=== PATIENT | male | born 1955 | race Two or more races ===

== ENCOUNTER 2017-05-31 09:06 | Day surgery (SDC) | payer OTHER ==
[2017-05-30 09:48] VITALS: BMI 26.9
[~2017-05-31 09:06] MED LIST: LACTATED RINGERS 1,000 ML IV SCH
[2017-05-31 09:38] VITALS: TEMP 97.3
[2017-05-31] MEDS ORDERED: LIDOCAINE 1% 20 ML VIAL (10MG/ML) FOR IV START INTRADERMA ONE (09:39)
[2017-05-31] MEDS ORDERED: MIDAZOLAM 2 MG/2 ML VIAL ONE (10:27)
[2017-05-31] MEDS ORDERED: PROPOFOL 10 MG/ML 20 ML VIAL IV ONE (10:27)
[2017-05-31] MEDS ORDERED: fentaNYL (PF) 50 MCG/ML 2 ML AMP ONE (10:27)
[2017-05-31] MEDS ORDERED: LIDOCAINE 1% INJ 10MG/ML (20 ML MDV) ONE (10:27)
--- NOTE | 2017-05-31 10:58 | P.PCN ---
Date of Procedure: 05/31/17 Procedure(s) Performed: Procedure: Colonoscopy and polypectomy. Preoperative diagnosis: Screening for neoplasia. Postoperative diagnosis: Right colon polyp snared but no large polyps or cancer. Preparation: HalfLytely prep. Sedation: Was provided by anesthesia. Brief clinical history: The patient is a 62-year-old male who is referred for this evaluation for screening for neoplasia age being his risk factor. He has no abdominal complaints, bleeding or anemia. No family history of colon cancer. This would be his first colonoscopy. Procedure: With the patient on his left lateral decubitus position and after informed consent and adequate sedation, the perianal area was inspected and it did not show any fissures or fistulas. There were no masses felt on digital rectal examination. The Olympus CFQ 160L video colonoscope was then inserted in the rectum in the usual fashion and advanced to the cecum. The preparation was less than ideal as there was some thick fecal secretions and fecal debris that could not be suctioned completely because it would block the suction channel. The mucosa where visualized appeared healthy. There was a small polyp in the proximal right colon which I snared and retrieved by suction but there were no large polyps or cancer. Although small or diminutive polyps or superficial pathology could have been missed because of the preparation. I retroflexed the endoscope in the rectum before the endoscope was withdrawn. The patient tolerated the procedure well. Plan: The patient was briefed of the findings on this exam. I anticipate repeating this exam in 2-3 years since his preparation was less than ideal and we found a polyp. He will follow up with you as planned. I will keep you updated.
[2017-05-31 12:01] VITALS: BP 126/78; PULSE 76; RESP 20
== END 2017-05-31 11:56 | disposition home or self-care (01) ==
LOC: ORWHC2ENDO 09:06
DX: Z12.11 Encounter for screening for malignant neoplasm of colon (principal); K63.5 Polyp of colon; E78.5 Hyperlipidemia, unspecified; F41.9 Anxiety disorder, unspecified; Z79.82 Long term (current) use of aspirin; Z79.899 Other long term (current) drug therapy
CPT/HCPCS: 88305; 45385; J2250; J2001; J3010; J2704

== ENCOUNTER 2019-03-14 14:10 | Emergency (ER) | payer MEDICARE, OTHER ==
[2019-03-14 14:28] VITALS: BP 129/76; PULSE 93; RESP 16; TEMP 98.3
[2019-03-14] MEDS ORDERED: KETOROLAC 30 MG/ML 1 ML VIAL IVP STA (15:32)
[2019-03-14 15:42] LABS: Basophils % (A) 0 %; Eosinophils # (A) 0.2 k/uL (0-0.7); Eosinophils % (A) 2 %; HGB 15.8 gm/dL (13.0-17.5); Lymphocytes # (A) 1.6 k/uL (1.0-4.8); Lymphocytes % (A) 21 %; MCH 30.7 pg (25.0-35.0); MCHC 35.2 g/dL (31.0-37.0); MCV 87.2 fL (80.0-100.0); Mean Platelet Volume 6.7; Monocytes # (A) 0.6 k/uL (0-1.0); Monocytes % (A) 7 %; Neutrophils # (A) 5.2 k/uL (1.3-7.7); Neutrophils % (A) 68 %; Platelet Count 161 k/uL (150-450); RBC 5.16 m/uL (4.30-5.90); RDW 13.8 % (11.5-15.5); WBC 7.7 k/uL (3.8-10.6)
[2019-03-14 15:45] LABS: Appearance,Urine Clear (Clear); Bilirubin,Urine Negative (Negative); Blood,Urine Negative (Negative); Color,Urine Yellow; Glucose,Urine (UA) Negative (Negative); Ketones,Urine Negative (Negative); Leukocyte Esterase,Urine Negative (Negative); Nitrite,Urine Negative (Negative); PH, Urine 6.5 (5.0-8.0); Protein,Urine Negative (Negative); Specific Gravity,Urine 1.017 (1.001-1.035)
[2019-03-14 15:48] LABS: ALT 39 U/L (21-72); AST 38 U/L (17-59); African American GFR (CKD) >90 (>60 ml/min/1.73 sqM); Albumin 4.2 g/dL (3.5-5.0); Alkaline Phosphatase 52 U/L (38-126); Amylase 43 U/L (30-110); Anion Gap 7 mmol/L; Blood Urea Nitrogen 12 mg/dL (9-20); Calcium 9.2 mg/dL (8.4-10.2); Carbon Dioxide 29 mmol/L (22-30); Chloride 101 mmol/L (98-107); Glucose 92 mg/dL (74-99); Lipase 24 U/L (23-300); Potassium 4.1 mmol/L (3.5-5.1); Sodium 137 mmol/L (137-145); Total Bilirubin 0.9 mg/dL (0.2-1.3); Total Protein 7.1 g/dL (6.3-8.2)
--- NOTE | 2019-03-14 16:02 | CT ---
EXAMINATION TYPE: CT abdomen pelvis wo con DATE OF EXAM: 03/14/2019 HISTORY: Right sided pain CT DLP: 800.9 mGycm. Automated Exposure Control for Dose Reduction was Utilized. TECHNIQUE: CT scan of the abdomen and pelvis is performed without oral or IV contrast. COMPARISON: NONE FINDINGS: Within the limitations of a non-contrast study, the following observations are made. LUNG BASES: Moderate three-vessel coronary artery calcification is present. Motion artifact degradati on is noted making evaluation suboptimal the lung bases. LIVER/GB: No significant abnormality is appreciated. PANCREAS: No significant abnormality is seen. SPLEEN: No significant abnormality is seen. ADRENALS: No significant abnormality is seen. KIDNEYS: No renal stones or hydronephrosis. Bladder is poorly distended with mild to moderate irregul ar wall thickening. Correlate clinically to exclude acute cystitis. No intraluminal calculus. BOWEL: Evaluation of bowel suboptimal secondary to lack of enteric contrast. Normal-appearing appendi x is seen from cecum. No suspicious swallow large bowel dilatation. GENITAL ORGANS: Prostate gland is upper limits of normal in size with surrounding phleboliths. Semina l vesicles are slightly bulky. LYMPH NODES: No greater than 1cm abdominal or pelvic lymph nodes are appreciated. OSSEOUS STRUCTURES: Transitional-type L6 vertebra is noted. OTHER: No significant additional abnormality is seen. IMPRESSION: No right sided renal stones or hydronephrosis. No CT evidence for acute appendicitis. Pos sible bladder infection or cystitis, correlate clinically. No acute finding otherwise is seen.
--- NOTE | 2019-03-14 16:23 | ED ---
Abdominal Pain HPI - General Chief Complaint: Abdominal Pain Stated Complaint: Side Abd/Back Pain Time Seen by Provider: 03/14/19 14:50 Source: patient Mode of arrival: ambulatory Limitations: no limitations - History of Present Illness Initial Comments: Patient is a 64-year-old male who presents emergency Department with complaints of right-sided abdominal pain with radiation to the right flank on and off 2-3 weeks. Patient states that pain has been increasing over the last few days. Patient states they went to local urgent care 2 days ago and received an abdominal x-ray that was normal. Patient denies any trauma to the area. Patient denies nausea, vomiting, diarrhea, fever, chills, urinary symptoms. Patient admits to history of lumbar DDD. Patient has tried taking Motrin for the pain with minimal relief. No other complaints at this time. - Related Data Home Medications Medication Instructions Recorded Confirmed Aspirin [Adult Low Dose Aspirin EC] 162 mg PO QAM 05/30/17 05/30/17 Buprenorphine HCl/Naloxone HCl 1.5 tab PO DAILY 05/30/17 05/30/17 [Suboxone 8 mg-2 mg Sl Film] Ramipril [Altace] 2.5 mg PO HS 05/30/17 05/30/17 Simvastatin [Zocor] 40 mg PO HS 05/30/17 05/30/17 clonazePAM [KlonoPIN] 2 mg PO QAM 05/30/17 05/30/17 traZODone HCL [Desyrel] 300 mg PO HS 05/30/17 05/30/17 Allergies Allergy/AdvReac Type Severity Reaction Status Date / Time No Known Allergies Allergy Verified 03/14/19 14:28 Review of Systems ROS Statement: Those systems with pertinent positive or pertinent negative responses have been documented in the HPI. ROS Other: All systems not noted in ROS Statement are negative. Past Medical History Additional Past Medical History / Comment(s): varicose veins, degenerative disk disease, hx injured back from fall, History of Any Multi-Drug Resistant Organisms: None Reported Past Surgical History: No Surgical Hx Reported Additional Past Anesthesia/Blood Transfusion Reaction / Comment(s): never had anesthesia Past Psychological History: No Psychological Hx Reported Smoking Status: Former smoker Past Alcohol Use History: Occasional Past Drug Use History: Marijuana - Past Family History Mother Family Medical History: No Reported History General Exam - General Exam Comments Initial Comments: GENERAL: Well-appearing, well-nourished and in no acute distress. HEAD: Atraumatic, normocephalic. EYES: Pupils equal round and reactive to light, extraocular movements intact, sclera anicteric, conjunctiva are normal. ENT: TMs normal, nares patent, oropharynx clear without exudates. Moist mucous membranes. NECK: Normal range of motion, supple without lymphadenopathy or JVD. LUNGS: Breath sounds clear to auscultation bilaterally and equal. No wheezes rales or rhonchi. HEART: Regular rate and rhythm without murmurs, rubs or gallops. ABDOMEN: Right lower quadrant and right flank pain. Soft, normoactive bowel sounds. No guarding, no rebound. No masses appreciated. No left-sided CVA tenderness. : Deferred EXTREMITIES: Normal range of motion, no pitting or edema. No clubbing or cyano sis. NEUROLOGICAL: Cranial nerves II through XII grossly intact. Normal speech, normal gait. PSYCH: Normal mood, normal affect. SKIN: Warm, Dry, normal turgor, no rashes or lesions noted. Limitations: no limitations Course Vital Signs 03/14/19 14:25 Temperature 98.3 F Pulse Rate 93 Respiratory 16 Rate Blood Pressure 129/76 O2 Sat by Pulse 97 Oximetry Medical Decision Making - Medical Decision Making Patient is a 64-year-old male with complaints of right lower quadrant and right flank pain on and off times to 3 weeks. Patient denies any trauma to the area. On exam patient has tenderness right lower quadrant and right flank pain. CBC, CMP, UA are all within normal limits. CT of the abdomen shows no acute abnormalities. Findings were discussed with the patient. Patient then admitted that he went golfing a few weeks ago for the first time in over a year and states that could have triggered something in his back. Patient will be discharged home and will try Motrin and/or Tylenol for pain relief and will follow up with PCP as symptoms continue. Patient is okay with this plan. Return parameters were discussed and patient verbalized understanding. Case discussed with Dr. Jack. - Lab Data Result diagrams: 03/14/19 15:20 03/14/19 15:20 Lab Results 03/14/19 03/14/19 03/14/19 Range/Units 15:20 15:20 15:20 WBC 7.7 (3.8-10.6) k/uL RBC 5.16 (4.30-5.90) m/uL Hgb 15.8 (13.0-17.5) gm/dL Hct 45.0 (39.0-53.0) % MCV 87.2 (80.0-100.0) fL MCH 30.7 (25.0-35.0) pg MCHC 35.2 (31.0-37.0) g/dL RDW 13.8 (11.5-15.5) % Plt Count 161 (150-450) k/uL Neutrophils % 68 % Lymphocytes % 21 % Monocytes % 7 % Eosinophils % 2 % Basophils % 0 % Neutrophils # 5.2 (1.3-7.7) k/uL Lymphocytes # 1.6 (1.0-4.8) k/uL Monocytes # 0.6 (0-1.0) k/uL Eosinophils # 0.2 (0-0.7) k/uL Basophils # 0.0 (0-0.2) k/uL Sodium 137 (137-145) mmol/L Potassium 4.1 (3.5-5.1) mmol/L Chloride 101 (98-107) mmol/L Carbon Dioxide 29 (22-30) mmol/L Anion Gap 7 mmol/L BUN 12 (9-20) mg/dL Creatinine 0.92 (0.66-1.25) mg/dL Est GFR (CKD-EPI)AfAm >90 (>60 ml/min/1.73 sqM) Est GFR (CKD-EPI)NonAf 88 (>60 ml/min/1.73 sqM) Glucose 92 (74-99) mg/dL Calcium 9.2 (8.4-10.2) mg/dL Total Bilirubin 0.9 (0.2-1.3) mg/dL AST 38 (17-59) U/L ALT 39 (21-72) U/L Alkaline Phosphatase 52 (38-126) U/L Total Protein 7.1 (6.3-8.2) g/dL Albumin 4.2 (3.5-5.0) g/dL Amylase 43 (30-110) U/L Lipase 24 (23-300) U/L Urine Color Yellow Urine Appearance Clear (Clear) Urine pH 6.5 (5.0-8.0) Ur Specific [place] 1.017 (1.001-1.035) Urine Protein Negative (Negative) Urine Glucose (UA) Negative (Negative) Urine Ketones Negative (Negative) Urine Blood Negative (Negative) Urine Nitrite Negative (Negative) Urine Bilirubin Negative (Negative) Urine Urobilinogen 2.0 (<2.0) mg/dL Ur Leukocyte Esterase Negative (Negative) Disposition Clinical Impression: Abdominal pain Disposition: HOME SELF-CARE Condition: Stable Instructions (If sedation given, give patient instructions): Abdominal Pain (ED) Additional Instructions: Please return to the Emergency Department if symptoms worsen or any other concerns. Continue with Motrin and/or Tylenol pain as discussed. Follow up with PCP as symptoms continue. Is patient prescribed a controlled substance at d/c from ED?: No Referrals: Nonstaff,Physician [Primary Care Provider] - 1-2 days
== END 2019-03-14 16:32 | disposition home or self-care (01) ==
LOC: EC 14:10
DX: R10.9 Unspecified abdominal pain (principal); Z79.82 Long term (current) use of aspirin; Z79.899 Other long term (current) drug therapy; Z87.891 Personal history of nicotine dependence
CPT/HCPCS: 36415; 80053; 82150; 83690; 85025; 81003; 74176; 99284; 96374; J1885

== ENCOUNTER 2020-01-09 18:22 | Inpatient (IN) | payer MEDICARE ==
[2020-01-09] MEDS ORDERED: ACETAMINOPHEN TAB 500 MG TAB PO STA (19:04)
[2020-01-09] MEDS: SODIUM CHLORIDE 0.9% 500 ML 500 ML IV SCH ×2 (19:14→21:51)
--- NOTE | 2020-01-09 19:30 | XR ---
EXAMINATION TYPE: XR chest 1V portable DATE OF EXAM: 01/09/2020 COMPARISON: NONE HISTORY: Fever and body aches TECHNIQUE: Single frontal view of the chest is obtained. FINDINGS: There is no focal air space opacity, pleural effusion, or pneumothorax seen. The cardiac silhouette size is within normal limits. The osseous structures are intact. There are overlying car diac leads. Suspect some prominent epicardial fat pads are present. Aorta is dense. IMPRESSION: No acute process.
[2020-01-09 19:32] LABS: Basophils % (A) 0 %; Eosinophils % (A) 0 %; HCT 47.5 % (39.0-53.0); Lymphocytes # (A) 0.6 k/uL (1.0-4.8); Lymphocytes % (A) 5 %; MCH 29.8 pg (25.0-35.0); MCHC 33.6 g/dL (31.0-37.0); MCV 88.7 fL (80.0-100.0); Mean Platelet Volume 7.1; Monocytes # (A) 0.6 k/uL (0-1.0); Monocytes % (A) 5 %; Neutrophils # (A) 10.2 k/uL (1.3-7.7); Neutrophils % (A) 88 %; Platelet Count 151 k/uL (150-450); RBC 5.36 m/uL (4.30-5.90); RDW 13.4 % (11.5-15.5); WBC 11.5 k/uL (3.8-10.6)
[2020-01-09 19:40] LABS: Appearance,Urine Clear (Clear); Bilirubin,Urine Negative (Negative); Blood,Urine Negative (Negative); Color,Urine Yellow; Glucose,Urine (UA) Negative (Negative); Ketones,Urine Trace (Negative); Leukocyte Esterase,Urine Negative (Negative); Nitrite,Urine Negative (Negative); Protein,Urine Trace (Negative); Specific Gravity,Urine 1.031 (1.001-1.035)
[2020-01-09 19:41] LABS: ALT 41 U/L (4-49); AST 37 U/L (17-59); African American GFR (CKD) >90 (>60 ml/min/1.73 sqM); Albumin 4.1 g/dL (3.5-5.0); Alkaline Phosphatase 57 U/L (38-126); Anion Gap 9 mmol/L; Blood Urea Nitrogen 14 mg/dL (9-20); Calcium 9.1 mg/dL (8.4-10.2); Carbon Dioxide 25 mmol/L (22-30); Chloride 100 mmol/L (98-107); Glucose 144 mg/dL (74-99); Non-African American GFR(CKD) 86 (>60 ml/min/1.73 sqM); Potassium 3.9 mmol/L (3.5-5.1); Sodium 134 mmol/L (137-145); Total Bilirubin 1.3 mg/dL (0.2-1.3)
[2020-01-09 19:44] LABS: INR 1.1 (<1.2); Partial Thromboplastin Time 23.6 sec (22.0-30.0); Prothrombin Time 11.5 sec (9.0-12.0)
--- NOTE | 2020-01-09 19:44 | ED ---
General Adult HPI - General Source: patient Mode of arrival: ambulatory Limitations: no limitations <Shawna Thurman - Last Filed: 01/11/20 16:06> <Amita Rodriguez - Last Filed: 01/12/20 21:32> - General Chief complaint: Fever Stated complaint: Fever, body aches Time Seen by Provider: 01/09/20 18:50 - History of Present Illness Initial comments: 64-year-old male patient presents to the emergency department today for evaluation of fever and body aches. Patient states that symptoms started yesterday evening and have persisted throughout the day today. States he also had presence of upper abdominal pain last night and this morning. States that his abdominal pain has resolved however he still feels feverish and achy. He denies any nausea or vomiting. Denies any constipation or diarrhea. Denies any cough, congestion, sore throat, or ear pain. States that up to this point he has been well. Denies any rashes or wounds. Patient denies any recent rash, chest pain, back pain, numbness, tingling, dizziness, weakness, hematuria, dysuria, urinary frequency, urinary urgency, headache, visual changes, or any other complaints. (Shawna Thurman) - Related Data Home Medications Medication Instructions Recorded Confirmed Buprenorphine HCl/Naloxone HCl 1 film SL BID 05/30/17 01/09/20 [Suboxone 8 mg-2 mg Sl Film] Ramipril [Altace] 2.5 mg PO DAILY 05/30/17 01/09/20 clonazePAM [KlonoPIN] 1 mg PO Q8H PRN 05/30/17 01/09/20 traZODone HCL [Desyrel] 400 mg PO HS 05/30/17 01/09/20 Cyclobenzaprine [Flexeril] 10 mg PO DAILY PRN 01/09/20 01/09/20 Simvastatin 40 mg PO DAILY 01/09/20 01/09/20 Testosterone Cypionate 300 mg IM [id number] 01/09/20 01/09/20 [Depo-Testosterone] Previous Rx's Medication Instructions Recorded Docusate [Colace] 100 mg PO BID #20 capsule 01/11/20 HYDROcodone/APAP 5-325MG [[place] 1 tab PO Q6HR PRN #10 tab 01/11/20 5-325] Allergies Allergy/AdvReac Type Severity Reaction Status Date / Time No Known Allergies Allergy Verified 01/09/20 22:20 Review of Systems ROS Other: All systems not noted in ROS Statement are negative. <Shawna Thurman - Last Filed: 01/11/20 16:06> ROS Other: All systems not noted in ROS Statement are negative. <Amita Rodriguez Anthony - Last Filed: 01/12/20 21:32> ROS Statement: Those systems with pertinent positive or pertinent negative responses have been documented in the HPI. Past Medical History Additional Past Medical History / Comment(s): degenerative disk disease, hx injured back from fall, History of Any Multi-Drug Resistant Organisms: None Reported Past Surgical History: No Surgical Hx Reported Additional Past Anesthesia/Blood Transfusion Reaction / Comment(s): never had anesthesia Past Psychological History: No Psychological Hx Reported Smoking Status: Former smoker Past Alcohol Use History: Occasional Past Drug Use History: None Reported - Past Family History Mother Family Medical History: No Reported History <Shawna Thurman - Last Filed: 01/11/20 16:06> General Exam Limitations: no limitations General appearance: alert, in no apparent distress, other (This is a well- developed, well-nourished adult male patient in no acute distress. Vital signs upon presentation are temperature 103.0F, pulse 62, respirations 20, blood pressure 133/67, pulse ox 96% on room air.) ENT exam: Present: normal exam, normal oropharynx, mucous membranes moist Respiratory exam: Present: normal lung sounds bilaterally. Absent: respiratory distress, wheezes, rales, rhonchi, stridor Cardiovascular Exam: Present: regular rate, normal rhythm, normal heart sounds. Absent: systolic murmur, diastolic murmur, rubs, gallop, clicks GI/Abdominal exam: Present: soft, normal bowel sounds. Absent: distended, tenderness, guarding, rebound, rigid Neurological exam: Present: alert, oriented X3, CN II-XII intact Psychiatric exam: Present: normal affect, normal mood Skin exam: Present: warm, dry, intact, normal color. Absent: rash <Shawna Thurman - Last Filed: 01/11/20 16:06> Course <Shawna Thurman - Last Filed: 01/11/20 16:06> Vital Signs 01/09/20 01/09/20 01/09/20 18:28 19:08 19:11 Temperature 100.1 F H 103.0 F H Pulse Rate 62 93 Respiratory 20 15 Rate Blood Pressure 133/67 O2 Sat by Pulse 96 95 Oximetry 01/09/20 01/09/20 01/09/20 19:20 19:30 19:40 Temperature Pulse Rate 103 H 93 98 Respiratory 9 L 16 12 Rate Blood Pressure 124/76 124/76 126/76 O2 Sat by Pulse 95 92 L 95 Oximetry 01/09/20 01/09/20 01/09/20 19:50 20:00 20:10 Temperature Pulse Rate 96 93 Respiratory 8 L 8 L Rate Blood Pressure 126/76 126/76 115/69 O2 Sat by Pulse 94 L 95 Oximetry 01/09/20 01/09/20 01/09/20 20:20 20:30 20:40 Temperature Pulse Rate 93 94 Respiratory 13 10 L Rate Blood Pressure 115/69 115/69 122/69 O2 Sat by Pulse 95 92 L Oximetry 01/09/20 01/09/20 01/09/20 20:50 21:00 21:10 Temperature Pulse Rate 98 96 92 Respiratory 16 13 14 Rate Blood Pressure 122/69 122/69 120/79 O2 Sat by Pulse 95 94 L 94 L Oximetry 01/09/20 01/09/20 01/09/20 21:20 21:30 21:40 Temperature Pulse Rate 90 86 92 Respiratory 8 L 12 6 L Rate Blood Pressure 120/79 120/79 121/75 O2 Sat by Pulse 95 94 L 94 L Oximetry 01/09/20 21:50 Temperature Pulse Rate 87 Respiratory 18 Rate Blood Pressure 121/75 O2 Sat by Pulse 95 Oximetry - Reevaluation(s) Reevaluation #1: 01/09/20 19:58 Care has been handed over to my attending Dr. Rodriguez. CT added. Awaiting flu and covid swabs. (Shawna Thurman) EKG Findings - EKG Comments: EKG Findings:: EKG obtained at 191 shows sinus tachycardia with PACs. Ventricular rate is 104, VA interval 188, QRS duration 80, QT 320, QTC 420. No evidence of ST elevation or depression. <Shawna Thurman - Last Filed: 01/11/20 16:06> Medical Decision Making - Lab Data Result diagrams: 01/09/20 18:45 01/09/20 18:45 <Shawna Thurman Gibran - Last Filed: 01/11/20 16:06> - Lab Data Result diagrams: 01/10/20 06:17 01/10/20 06:17 <Amita Rodriguez - Last Filed: 01/12/20 21:32> - Medical Decision Making The patient was signed out to me at shift change. I did review his labs. It does demonstrate a white count of 11.5. Lipase elevated at 1684. Trace ketones in his UA. The patient was sent for a CT of his abdomen and pelvis which demonstrates mild fat stranding in the central upper abdomen and right upper quadrant around the gallbladder. Left lower pulmonary nodule. Gallbladder ultrasound was then performed which demonstrates hydropic size of the gallbladder however, bile duct not visualized. Equivocal read for possible acute cholecystitis. I did discuss results the patient. Blood cultures were obtained the patient was given a dose of Zosyn. I did recommend hospital admission for possible acute cholecystitis for which the patient did agree patient will be admitted to Dr. wilson (Amita Rodriguez) - Lab Data Lab Results 01/09/20 01/09/20 01/09/20 Range/Units 18:45 18:45 18:45 WBC 11.5 H (3.8-10.6) k/uL RBC 5.36 (4.30-5.90) m/uL Hgb 16.0 (13.0-17.5) gm/dL Hct 47.5 (39.0-53.0) % MCV 88.7 (80.0-100.0) fL MCH 29.8 (25.0-35.0) pg MCHC 33.6 (31.0-37.0) g/dL RDW 13.4 (11.5-15.5) % Plt Count 151 (150-450) k/uL Neutrophils % 88 % Lymphocytes % 5 % Monocytes % 5 % Eosinophils % 0 % Basophils % 0 % Neutrophils # 10.2 H (1.3-7.7) k/uL Lymphocytes # 0.6 L (1.0-4.8) k/uL Monocytes # 0.6 (0-1.0) k/uL Eosinophils # 0.0 (0-0.7) k/uL Basophils # 0.0 (0-0.2) k/uL PT 11.5 (9.0-12.0) sec INR 1.1 (<1.2) APTT 23.6 (22.0-30.0) sec Sodium (137-145) mmol/L Potassium (3.5-5.1) mmol/L Chloride (98-107) mmol/L Carbon Dioxide (22-30) mmol/L Anion Gap mmol/L BUN (9-20) mg/dL Creatinine (0.66-1.25) mg/dL Est GFR (CKD-EPI)AfAm (>60 ml/min/1.73 sqM) Est GFR (CKD-EPI)NonAf (>60 ml/min/1.73 sqM) Glucose (74-99) mg/dL Plasma Lactic Acid Ok (0.7-2.0) mmol/L Calcium (8.4-10.2) mg/dL Total Bilirubin (0.2-1.3) mg/dL AST (17-59) U/L ALT (4-49) U/L Alkaline Phosphatase (38-126) U/L Total Protein (6.3-8.2) g/dL Albumin (3.5-5.0) g/dL Lipase (23-300) U/L Urine Color Yellow Urine Appearance Clear (Clear) Urine pH 6.0 (5.0-8.0) Ur Specific [place] 1.031 (1.001-1.035) Urine Protein Trace H (Negative) Urine Glucose (UA) Negative (Negative) Urine Ketones Trace H (Negative) Urine Blood Negative (Negative) Urine Nitrite Negative (Negative) Urine Bilirubin Negative (Negative) Urine Urobilinogen 3.0 (<2.0) mg/dL Ur Leukocyte Esterase Negative (Negative) Coronavirus (PCR) (Not Detectd) Influenza Type A RNA (Not Detectd) Influenza Type B (PCR) (Not Detectd) 01/09/20 01/09/20 01/09/20 Range/Units 18:45 18:45 18:45 WBC (3.8-10.6) k/uL RBC (4.30-5.90) m/uL Hgb (13.0-17.5) gm/dL Hct (39.0-53.0) % MCV (80.0-100.0) fL MCH (25.0-35.0) pg MCHC (31.0-37.0) g/dL RDW (11.5-15.5) % Plt Count (150-450) k/uL Neutrophils % % Lymphocytes % % Monocytes % % Eosinophils % % Basophils % % Neutrophils # (1.3-7.7) k/uL Lymphocytes # (1.0-4.8) k/uL Monocytes # (0-1.0) k/uL Eosinophils # (0-0.7) k/uL Basophils # (0-0.2) k/uL PT (9.0-12.0) sec INR (<1.2) APTT (22.0-30.0) sec Sodium 134 L (137-145) mmol/L Potassium 3.9 (3.5-5.1) mmol/L Chloride 100 (98-107) mmol/L Carbon Dioxide 25 (22-30) mmol/L Anion Gap 9 mmol/L BUN 14 (9-20) mg/dL Creatinine 0.94 (0.66-1.25) mg/dL Est GFR (CKD-EPI)AfAm >90 (>60 ml/min/1.73 sqM) Est GFR (CKD-EPI)NonAf 86 (>60 ml/min/1.73 sqM) Glucose 144 H (74-99) mg/dL Plasma Lactic Acid Ok 1.4 (0.7-2.0) mmol/L Calcium 9.1 (8.4-10.2) mg/dL Total Bilirubin 1.3 (0.2-1.3) mg/dL AST 37 (17-59) U/L ALT 41 (4-49) U/L Alkaline Phosphatase 57 (38-126) U/L Total Protein 7.0 (6.3-8.2) g/dL Albumin 4.1 (3.5-5.0) g/dL Lipase 1684 H (23-300) U/L Urine Color Urine Appearance (Clear) Urine pH (5.0-8.0) Ur Specific [place] (1.001-1.035) Urine Protein (Negative) Urine Glucose (UA) (Negative) Urine Ketones (Negative) Urine Blood (Negative) Urine Nitrite (Negative) Urine Bilirubin (Negative) Urine Urobilinogen (<2.0) mg/dL Ur Leukocyte Esterase (Negative) Coronavirus (PCR) (Not Detectd) Influenza Type A RNA (Not Detectd) Influenza Type B (PCR) (Not Detectd) 01/09/20 01/10/20 01/10/20 Range/Units 20:39 06:17 06:17 WBC 8.1 (3.8-10.6) k/uL RBC 4.72 (4.30-5.90) m/uL Hgb 14.2 (13.0-17.5) gm/dL Hct 42.1 (39.0-53.0) % MCV 89.3 (80.0-100.0) fL MCH 30.1 (25.0-35.0) pg MCHC 33.7 (31.0-37.0) g/dL RDW 13.6 (11.5-15.5) % Plt Count 137 L (150-450) k/uL Neutrophils % 85 % Lymphocytes % 7 % Monocytes % 7 % Eosinophils % 0 % Basophils % 0 % Neutrophils # 6.9 (1.3-7.7) k/uL Lymphocytes # 0.5 L (1.0-4.8) k/uL Monocytes # 0.5 (0-1.0) k/uL Eosinophils # 0.0 (0-0.7) k/uL Basophils # 0.0 (0-0.2) k/uL PT (9.0-12.0) sec INR (<1.2) APTT (22.0-30.0) sec Sodium 135 L (137-145) mmol/L Potassium 3.8 (3.5-5.1) mmol/L Chloride 100 (98-107) mmol/L Carbon Dioxide 28 (22-30) mmol/L Anion Gap 7 mmol/L BUN 14 (9-20) mg/dL Creatinine 0.85 (0.66-1.25) mg/dL Est GFR (CKD-EPI)AfAm >90 (>60 ml/min/1.73 sqM) Est GFR (CKD-EPI)NonAf >90 (>60 ml/min/1.73 sqM) Glucose 100 H (74-99) mg/dL Plasma Lactic Acid Ok (0.7-2.0) mmol/L Calcium 8.1 L (8.4-10.2) mg/dL Total Bilirubin (0.2-1.3) mg/dL AST (17-59) U/L ALT (4-49) U/L Alkaline Phosphatase (38-126) U/L Total Protein (6.3-8.2) g/dL Albumin (3.5-5.0) g/dL Lipase (23-300) U/L Urine Color Urine Appearance (Clear) Urine pH (5.0-8.0) Ur Specific [place] (1.001-1.035) Urine Protein (Negative) Urine Glucose (UA) (Negative) Urine Ketones (Negative) Urine Blood (Negative) Urine Nitrite (Negative) Urine Bilirubin (Negative) Urine Urobilinogen (<2.0) mg/dL Ur Leukocyte Esterase (Negative) Coronavirus (PCR) Not Detected (Not Detectd) Influenza Type A RNA Not Detected (Not Detectd) Influenza Type B (PCR) Not Detected (Not Detectd) Disposition <Shawna Thurman - Last Filed: 01/11/20 16:06> Is patient prescribed a controlled substance at d/c from ED?: No Decision to Admit Reason: Admit from EC Decision Date: 01/09/20 Decision Time: 22:47 <Amita Rodriguez - Last Filed: 01/12/20 21:32> Clinical Impression: Fever, Acute cholecystitis, Abdominal pain, Elevated lipase Disposition: ADMITTED IP TO THIS [facility] Condition: Stable
--- NOTE | 2020-01-09 20:35 | CT ---
EXAMINATION TYPE: CT abdomen pelvis w con DATE OF EXAM: 01/09/2020 COMPARISON: 03/14/2019 HISTORY: epigastric pain, fever CT DLP: 1481.1 mGycm Automated exposure control for dose reduction was used. TECHNIQUE: Helical acquisition of images was performed from the lung bases through the pelvis. CONTRAST: Performed without Oral Contrast and with IV Contrast, patient injected with 100 mL of Isovue 300. FINDINGS: LUNG BASES: 2 mm solid pulmonary nodule seen in the left lower lobe on series 4 image 201 and series 204 image 4. Multifocal linear pleural parenchymal scarring and bibasilar subsegmental dependent atel ectasis in the lungs. LIVER/GB: There is patchy stranding in the central abdomen and right upper quadrant adjacent to the g allbladder and image 35 and in the groove between the pancreas and descending duodenum. Descending du odenal diverticulum is also seen. PANCREAS: No significant abnormality is seen. SPLEEN: The spleen is enlarged measuring 14.4 cm in craniocaudal dimension. ADRENALS: No significant abnormality is seen. KIDNEYS: Kidneys enhance and excrete symmetrically without hydronephrosis. Urinary bladder displays c ircumferential urinary bladder wall thickening, which could be on the basis of infectious etiology or incomplete distention. Resting clinic heterogenous. FREE AIR: No free air is visualized. ADENOPATHY: Limited evaluation without intravenous contrast. No greater than 1 cm short axis lymph n odes are seen in the abdomen or pelvis. OSSEOUS STRUCTURES: There is mild levoscoliosis of the lumbar spine that may be positional. Mild mul tilevel degenerative change of the spine. BOWEL: Suboptimal exam without oral contrast. No evidence of obstruction. Mild degree colonic fecal stasis in the transverse colon and right hemicolon. Appendix is within normal limits. OTHER: Moderate atheromatous changes of the abdominal aorta and its branches. IMPRESSION: 1. MILD FAT STRANDING IN THE CENTRAL UPPER ABDOMEN AND RIGHT UPPER QUADRANT AROUND THE GALLBLADDER. C ORRELATE WITH SERUM LABORATORY VALUES TO EVALUATE FURTHER FOR ACUTE CHOLECYSTITIS OR GROOVE PANCREATI TIS/DUODENITIS. 2. URINARY BLADDER WALL THICKENING DIFFUSELY. THIS COULD RELATE TO INCOMPLETE DISTENTION OR A URINARY TRACT INFECTION. CORRELATE WITH URINALYSIS. 3. SUBCENTIMETER LEFT LOWER LOBE PULMONARY NODULE. NONEMERGENT FOLLOW-UP CT THORAX IS RECOMMENDED FOR FULL EVALUATION OF THE CHEST.
[2020-01-09 21:09] LABS: SARS-CoV-2 RNA Rapid Abbott Not Detected (Not Detectd)
[2020-01-09] MEDS ORDERED: PIPERACILLIN-TAZOBACTAM 3.375 GM in SODIUM CHLORIDE 0.9% 100 ML IVPB STA (21:23)
--- NOTE | 2020-01-09 22:37 | US ---
EXAMINATION TYPE: US gallbladder DATE OF EXAM: 01/09/2020 COMPARISON: CT. CLINICAL HISTORY: cholecystitis. Abdominal pain x 1 day. EXAM MEASUREMENTS: Liver Length: 17.4 cm Gallbladder Wall: 0.27 cm CBD: Not visualized. Right Kidney: 13.2 x 5.6 x 5.6 cm Pancreas: Limited due to overlying bowel gas. Liver: Measures upper limits of normal. Heterogenous echogenicity throughout. Hypoechoic area seen a djacent to the gallbladder measurin.2 x 2.5 x 1.6 cm. Gallbladder: Appears distended measuring 11.0 cm in length. Possible minimal internal echoes near ne ck versus artifact. Evidence for sonographic Deng's sign: No CBD: Not visualized due to gas. Right Kidney: Measures enlarged. IMPRESSION: 1. Hydropic size of the gallbladder however unfortunately the common bile duct was not visualized due to overlying bowel gas. Sonographic Deng sign was noted to be negative. HIDA scan could be perform ed if there is further concern for acute cholecystitis given the equivocal sonographic findings. 2. Sonographic most commonly seen in hepatic steatosis with hypoechoic area adjacent to the gallbladd er that may represent focal fatty sparing. Nonemergent follow-up [address] MR liver could further evaluate this finding.
[2020-01-09] MEDS ORDERED: ACETAMINOPHEN TAB 325 MG TAB PO PRN (22:47)
[2020-01-09] MEDS ORDERED: NALOXONE 0.4 MG/ML 1 ML VIAL IV PRN (22:47)
[2020-01-09] MEDS ORDERED: IBUPROFEN 400 MG TAB PO PRN (22:47)
[2020-01-10 07:06] LABS: Basophils % (A) 0 %; Eosinophils % (A) 0 %; HCT 42.1 % (39.0-53.0); HGB 14.2 gm/dL (13.0-17.5); Lymphocytes # (A) 0.5 k/uL (1.0-4.8); Lymphocytes % (A) 7 %; MCH 30.1 pg (25.0-35.0); MCHC 33.7 g/dL (31.0-37.0); MCV 89.3 fL (80.0-100.0); Mean Platelet Volume 7.3; Monocytes # (A) 0.5 k/uL (0-1.0); Monocytes % (A) 7 %; Neutrophils # (A) 6.9 k/uL (1.3-7.7); Neutrophils % (A) 85 %; Platelet Count 137 k/uL (150-450); RBC 4.72 m/uL (4.30-5.90); RDW 13.6 % (11.5-15.5); WBC 8.1 k/uL (3.8-10.6)
[2020-01-10 07:34] LABS: African American GFR (CKD) >90 (>60 ml/min/1.73 sqM); Anion Gap 7 mmol/L; Blood Urea Nitrogen 14 mg/dL (9-20); Calcium 8.1 mg/dL (8.4-10.2); Carbon Dioxide 28 mmol/L (22-30); Chloride 100 mmol/L (98-107); Glucose 100 mg/dL (74-99); Non-African American GFR(CKD) >90 (>60 ml/min/1.73 sqM); Potassium 3.8 mmol/L (3.5-5.1); Sodium 135 mmol/L (137-145)
[2020-01-10] MEDS: SODIUM CHLORIDE 0.9% 500 ML 500 ML IV SCH (10:02)
[2020-01-10] MEDS: SODIUM CHLORIDE 0.9% 1,000 ML IV SCH ×3 (10:02→19:50)
--- NOTE | 2020-01-10 11:28 | P.GSHP ---
History of Present Illness H&P Date: 01/10/20 Chief Complaint: Right upper quadrant pain This a 64-year-old male who had complaints of right quadrant pain. Patient was admitted through the emergency room. Patient's found have evidence of cholecystitis. Patient's ultrasound shows hydropic gallbladder with gallstones in the neck of the gallbladder. Past Medical History Additional Past Medical History / Comment(s): degenerative disk disease, hx injured back from fall, History of Any Multi-Drug Resistant Organisms: None Reported Past Surgical History: No Surgical Hx Reported Past Anesthesia/Blood Transfusion Reactions: No Reported Reaction Additional Past Anesthesia/Blood Transfusion Reaction / Comment(s): never had anesthesia Past Psychological History: No Psychological Hx Reported Smoking Status: Former smoker Past Alcohol Use History: Occasional Additional Past Alcohol Use History / Comment(s): quit smoking 1989, smoked since age 17, 1/2 PPD Past Drug Use History: None Reported - Past Family History Mother Family Medical History: No Reported History, Dementia Medications and Allergies Home Medications Medication Instructions Recorded Confirmed Type Buprenorphine HCl/Naloxone HCl 1 film SL BID 05/30/17 01/09/20 History [Suboxone 8 mg-2 mg Sl Film] Ramipril [Altace] 2.5 mg PO DAILY 05/30/17 01/09/20 History clonazePAM [KlonoPIN] 1 mg PO Q8H PRN 05/30/17 01/09/20 History traZODone HCL [Desyrel] 400 mg PO HS 05/30/17 01/09/20 History Cyclobenzaprine [Flexeril] 10 mg PO DAILY PRN 01/09/20 01/09/20 History Simvastatin 40 mg PO DAILY 01/09/20 01/09/20 History Testosterone Cypionate 300 mg IM [id number] 01/09/20 01/09/20 History [Depo-Testosterone] Allergies Allergy/AdvReac Type Severity Reaction Status Date / Time No Known Allergies Allergy Verified 01/09/20 22:20 Surgical - Exam Vital Signs Temp Pulse Resp BP Pulse Ox 100.1 F H 62 20 133/67 96 01/09/20 18:28 01/09/20 18:28 01/09/20 18:28 01/09/20 18:28 01/09/20 18:28 - General well developed, well nourished - Eyes PERRL - ENT normal pinna - Neck no masses - Respiratory normal expansion - Cardiovascular Rhythm: regular - Abdomen Mild right upper quadrant pain Abdomen: soft Results - Labs 01/10/20 06:17 01/10/20 06:17 Abnormal Lab Results - Last 24 Hours (Table) 01/09/20 01/09/20 01/09/20 Range/Units 18:45 18:45 18:45 WBC 11.5 H (3.8-10.6) k/uL Plt Count (150-450) k/uL Neutrophils # 10.2 H (1.3-7.7) k/uL Lymphocytes # 0.6 L (1.0-4.8) k/uL Sodium 134 L (137-145) mmol/L Glucose 144 H (74-99) mg/dL Calcium (8.4-10.2) mg/dL Lipase (23-300) U/L Urine Protein Trace H (Negative) Urine Ketones Trace H (Negative) 01/09/20 01/10/20 01/10/20 Range/Units 18:45 06:17 06:17 WBC (3.8-10.6) k/uL Plt Count 137 L (150-450) k/uL Neutrophils # (1.3-7.7) k/uL Lymphocytes # 0.5 L (1.0-4.8) k/uL Sodium 135 L (137-145) mmol/L Glucose 100 H (74-99) mg/dL Calcium 8.1 L (8.4-10.2) mg/dL Lipase 1684 H (23-300) U/L Urine Protein (Negative) Urine Ketones (Negative) Microbiology - Last 24 Hours (Table) 01/09/20 18:45 Blood Culture Gram Stain - Preliminary Blood 01/09/20 18:45 Blood Culture - Final Blood Diabetes panel 01/09/20 01/10/20 Range/Units 18:45 06:17 Sodium 134 L 135 L (137-145) mmol/L Potassium 3.9 3.8 (3.5-5.1) mmol/L Chloride 100 100 (98-107) mmol/L Carbon Dioxide 25 28 (22-30) mmol/L BUN 14 14 (9-20) mg/dL Creatinine 0.94 0.85 (0.66-1.25) mg/dL Glucose 144 H 100 H (74-99) mg/dL Calcium 9.1 8.1 L (8.4-10.2) mg/dL AST 37 (17-59) U/L ALT 41 (4-49) U/L Alkaline Phosphatase 57 (38-126) U/L Total Protein 7.0 (6.3-8.2) g/dL Albumin 4.1 (3.5-5.0) g/dL Calcium panel 01/09/20 01/10/20 Range/Units 18:45 06:17 Calcium 9.1 8.1 L (8.4-10.2) mg/dL Albumin 4.1 (3.5-5.0) g/dL Pituitary panel 01/09/20 01/10/20 Range/Units 18:45 06:17 Sodium 134 L 135 L (137-145) mmol/L Potassium 3.9 3.8 (3.5-5.1) mmol/L Chloride 100 100 (98-107) mmol/L Carbon Dioxide 25 28 (22-30) mmol/L BUN 14 14 (9-20) mg/dL Creatinine 0.94 0.85 (0.66-1.25) mg/dL Glucose 144 H 100 H (74-99) mg/dL Calcium 9.1 8.1 L (8.4-10.2) mg/dL Adrenal panel 01/09/20 01/10/20 Range/Units 18:45 06:17 Sodium 134 L 135 L (137-145) mmol/L Potassium 3.9 3.8 (3.5-5.1) mmol/L Chloride 100 100 (98-107) mmol/L Carbon Dioxide 25 28 (22-30) mmol/L BUN 14 14 (9-20) mg/dL Creatinine 0.94 0.85 (0.66-1.25) mg/dL Glucose 144 H 100 H (74-99) mg/dL Calcium 9.1 8.1 L (8.4-10.2) mg/dL Total Bilirubin 1.3 (0.2-1.3) mg/dL AST 37 (17-59) U/L ALT 41 (4-49) U/L Alkaline Phosphatase 57 (38-126) U/L Total Protein 7.0 (6.3-8.2) g/dL Albumin 4.1 (3.5-5.0) g/dL Assessment and Plan Assessment: Cholecystitis. Patient undergo laparoscopic cholecystectomy today.
[2020-01-10] MEDS: clonazePAM 1 MG TAB PO PRN ×2 (11:36→23:08)
--- NOTE | 2020-01-10 14:13 | P.CONS ---
History of Present Illness - Reason for Consult Recommendations regarding antidepressant medications, shortness of breath - History of Present Illness 64-year-old male came in with the complaints of her diffuse abdominal pain sharp in nature severe which is has a reveal improved now along with the body aches, fevers and nausea all of which started yesterday. Patient also has some shortness of breath because of which he believed he may have Covid 19, which was ruled out with the PCR testing chest x-ray did not show any pneumonia or any other significant abnormality patient is with obese. Patient denied any dysuria patient the abdominal CAT scan showed some thickening of the urinary bladder but patient he is within normal limits and patient doesn't have any symptoms of UTI patient was started on Zosyn. Patient's computed tomography scan of the abdomen showed suspicious cholecystitis. Ultrasound of the abdomen was done which showed hydropic says gallbladder although patient's Deng's sign is negative and clinical exam. Abdomen is firm, no rebound or rigidity Review of Systems REVIEW OF SYSTEMS: CONSTITUTIONAL: No fever, no malaise, no fatigue. HEENT: No recent visual problems or hearing problems. Denied any sore throat. CARDIOVASCULAR: No chest pain, orthopnea, PND, no palpitations, no syncope. PULMONARY: No shortness of breath, no cough, no hemoptysis. GASTROINTESTINAL: As mentioned in HPI NEUROLOGICAL: No headaches, no weakness, no numbness. HEMATOLOGICAL: Denies any bleeding or petechiae. GENITOURINARY: Denies any burning micturition, frequency, or urgency. MUSCULOSKELETAL/RHEUMATOLOGICAL: Denies any joint pain, swelling, or any muscle pain. ENDOCRINE: Denies any polyuria or polydipsia. The rest of the 14-point review of systems is negative. Past Medical History Additional Past Medical History / Comment(s): degenerative disk disease, hx injured back from fall, History of Any Multi-Drug Resistant Organisms: None Reported Past Surgical History: No Surgical Hx Reported Past Anesthesia/Blood Transfusion Reactions: No Reported Reaction Additional Past Anesthesia/Blood Transfusion Reaction / Comm: never had anesthesia Past Psychological History: No Psychological Hx Reported Smoking Status: Former smoker Past Alcohol Use History: Occasional Additional Past Alcohol Use History / Comment(s): quit smoking 1989, smoked since age 17, 1/2 PPD Past Drug Use History: None Reported - Past Family History Mother Family Medical History: No Reported History, Dementia Medications and Allergies Home Medications Medication Instructions Recorded Confirmed Type Buprenorphine HCl/Naloxone HCl 1 film SL BID 05/30/17 01/09/20 History [Suboxone 8 mg-2 mg Sl Film] Ramipril [Altace] 2.5 mg PO DAILY 05/30/17 01/09/20 History clonazePAM [KlonoPIN] 1 mg PO Q8H PRN 05/30/17 01/09/20 History traZODone HCL [Desyrel] 400 mg PO HS 05/30/17 01/09/20 History Cyclobenzaprine [Flexeril] 10 mg PO DAILY PRN 01/09/20 01/09/20 History Simvastatin 40 mg PO DAILY 01/09/20 01/09/20 History Testosterone Cypionate 300 mg IM [id number] 01/09/20 01/09/20 History [Depo-Testosterone] Allergies Allergy/AdvReac Type Severity Reaction Status Date / Time No Known Allergies Allergy Verified 01/09/20 22:20 Physical Exam Vitals: Vital Signs Temp Pulse Pulse Resp BP BP Pulse Ox 01/10/20 07:00 98.6 F 102 H 18 109/66 92 L 01/10/20 04:43 98.6 F 101 H 20 147/77 96 01/10/20 04:41 98.6 F 101 H 18 147/77 96 01/09/20 21:50 87 18 121/75 95 01/09/20 21:40 92 6 L 121/75 94 L 01/09/20 21:30 86 12 120/79 94 L 01/09/20 21:20 90 8 L 120/79 95 01/09/20 21:10 92 14 120/79 94 L 01/09/20 21:00 96 13 122/69 94 L 01/09/20 20:50 98 16 122/69 95 01/09/20 20:40 94 10 L 122/69 92 L 01/09/20 20:30 93 13 115/69 95 01/09/20 20:20 115/69 01/09/20 20:10 115/69 01/09/20 20:00 93 8 L 126/76 95 01/09/20 19:50 96 8 L 126/76 94 L 01/09/20 19:40 98 12 126/76 95 01/09/20 19:30 93 16 124/76 92 L 01/09/20 19:20 103 H 9 L 124/76 95 01/09/20 19:11 93 15 95 01/09/20 19:08 103.0 F H 01/09/20 18:28 100.1 F H 62 20 133/67 96 Intake and Output 01/09/20 01/10/20 01/10/20 22:59 06:59 14:59 Other: Weight 95.254 kg 95.254 kg PHYSICAL EXAMINATION: GENERAL: The patient is alert and oriented x3, not in any acute distress. Well developed, well nourished. HEENT: Pupils are round and equally reacting to light. EOMI. No scleral icterus. No conjunctival pallor. Normocephalic, atraumatic. No pharyngeal erythema. No thyromegaly. CARDIOVASCULAR: S1 and S2 present. No murmurs, rubs, or gallops. PULMONARY: Chest is clear to auscultation, no wheezing or crackles. ABDOMEN: Firm abdomen without any significant localized tenderness, no rebound or rigidity Deng's sign negative MUSCULOSKELETAL: No joint swelling or deformity. EXTREMITIES: No cyanosis, clubbing, or pedal edema. NEUROLOGICAL: Gross neurological examination did not reveal any focal deficits. SKIN: No rashes. Results CBC & Chem 7: 01/10/20 06:17 01/10/20 06:17 Labs: Abnormal Lab Results - Last 24 Hours (Table) 01/09/20 01/09/20 01/09/20 Range/Units 18:45 18:45 18:45 WBC 11.5 H (3.8-10.6) k/uL Plt Count (150-450) k/uL Neutrophils # 10.2 H (1.3-7.7) k/uL Lymphocytes # 0.6 L (1.0-4.8) k/uL Sodium 134 L (137-145) mmol/L Glucose 144 H (74-99) mg/dL Calcium (8.4-10.2) mg/dL Lipase (23-300) U/L Urine Protein Trace H (Negative) Urine Ketones Trace H (Negative) 01/09/20 01/10/20 01/10/20 Range/Units 18:45 06:17 06:17 WBC (3.8-10.6) k/uL Plt Count 137 L (150-450) k/uL Neutrophils # (1.3-7.7) k/uL Lymphocytes # 0.5 L (1.0-4.8) k/uL Sodium 135 L (137-145) mmol/L Glucose 100 H (74-99) mg/dL Calcium 8.1 L (8.4-10.2) mg/dL Lipase 1684 H (23-300) U/L Urine Protein (Negative) Urine Ketones (Negative) Microbiology - Last 24 Hours (Table) 01/09/20 18:45 Blood Culture Gram Stain - Preliminary Blood Blood Culture - Preliminary Proteus Species 01/09/20 18:45 Blood Culture - Final Blood Assessment and Plan Plan: -Sepsis probably secondary to acute cholecystitis patient will undergo cholecystectomy continue his Zosyn -Elevated lipase can be related to mild pancreatitis from a passed gallstone or can be nonspecific without any pancreatitis. -Hypovolemic hyponatremia can you with IV fluids --Chronic low back pain for which patient was walks on which can be continued -Hypertension patient's blood pressure is low because of sepsis hold off on the LEANNE inhibitor -Hyperlipidemia -Thickening of urinary bladder but no evidence of urinary tract infection
[2020-01-10] MEDS ORDERED: IV FLUID CONTINUATION 1,000 ML IV ONE (15:01)
[2020-01-10] MEDS ORDERED: ONDANSETRON 4 MG/2 ML VIAL IVP ONE (15:01)
[2020-01-10] MEDS ORDERED: HEPARIN SODIUM,PORCINE 5,000 UNIT/ML 1 ML VIAL SQ ONE (15:55)
[2020-01-10] MEDS ORDERED: PROPOFOL 10 MG/ML 20 ML VIAL IV ONE (15:58)
[2020-01-10] MEDS ORDERED: HYDROmorphone (PF) 1 MG/ML ONE (15:58)
[2020-01-10] MEDS ORDERED: KETOROLAC 30 MG/ML 1 ML VIAL ONE (15:58)
[2020-01-10] MEDS ORDERED: fentaNYL (PF) 50 MCG/ML 2 ML AMP ONE (15:58)
[2020-01-10] MEDS ORDERED: GLYCOPYRROLATE 0.2 MG/ML 2 ML VIAL ONE (15:58)
[2020-01-10] MEDS ORDERED: MIDAZOLAM 2 MG/2 ML VIAL ONE (15:58)
[2020-01-10] MEDS ORDERED: ROCURONIUM BROMIDE 10 MG/ML 5 ML VIAL IV ONE (15:58)
[2020-01-10] MEDS ORDERED: NEOSTIGMINE 1 MG/ML 10 ML VIAL ONE (15:58)
[2020-01-10] MEDS ORDERED: ONDANSETRON 4 MG/2 ML VIAL ONE (15:58)
[2020-01-10] MEDS ORDERED: LIDOCAINE 1% INJ 10MG/ML (20 ML MDV) ONE (15:58)
[2020-01-10] MEDS ORDERED: SUCCINYLCHOLINE CHLORIDE 100 MG/5 ML SYR IV ONE (15:58)
[2020-01-10] MEDS ORDERED: BUPIVACAIN-EPI 0.25%-1:200,000 30 ML VIAL SQ ONE (16:26)
[2020-01-10] MEDS: LACTATED RINGERS 1,000 ML IV ONE ×4 (16:26→18:13)
[2020-01-10] MEDS ORDERED: HYDROmorphone 1 MG/ML 1 ML SYRINGE IM PRN (16:58)
--- NOTE | 2020-01-10 16:58 | P.OP ---
Date of Procedure: 01/10/20 Preoperative Diagnosis: Cholecystitis Postoperative Diagnosis: Cholecystitis Procedure(s) Performed: Laparoscopic cholecystectomy Anesthesia: EDMOND Surgeon: Lakhwinder Cherry Estimated Blood Loss (ml): 10 Pathology: other (Gallbladder) Condition: stable Disposition: PACU Description of Procedure: The patient was placed on the operating table. The patient received a general endotracheal tube anesthesia. The patients abdomen was prepped and draped in the usual sterile fashion. Through an infraumbilical stab incision, the fascia of the anterior abdominal wall was grasped with a pair of Kochers and then the Veress needle was placed in the peritoneal cavity. Position of the Veress needle was confirmed with positive drop test. The abdomen was then insufflated. After adequate insufflation, the 10 mm trocar was placed in the peritoneal cavity. Following this the laparoscope was placed in the peritoneal cavity. The patient was placed in the head-up, right side up position and then a 5 mm trocar was placed in the right lateral and right subcostal position under direct visualization. A 8 mm trocar was placed in the epigastric position. The gallbladder was covered in omentum. The omentum was bluntly dissected free. The gallbladder was inflamed. The gallbladder was grasped in the fundus and infundibulum. Traction on the gallbladder was placed in the lateral and the cephalad positions. The gallbladder was very inflamed. The gallbladder was dissected near the fundus. Due to the significant inflammation of the jose m hepatis decided to perform a subtotal cholecystectomy. At the neck of the gallbladder a window was achieved with blunt dissection and then a 2-0 Ethibond sutures placed around the neck of the gallbladder. This was secured with a timeout device the gallbladder was then transected with the Harmonic scissors and then the gallbladder stump was ligated with the Endoloop. The cystic artery was then divided with the Harmonic scissors. The gallbladder was then removed liver bed using electrocautery and Harmonic scissors. The gallbladder was then extracted through the epigastric port site. Operative field was checked for any bleeding spots and Harmonic scissors was used to coagulate the liver bed. The abdomen was irrigated. The trocars were removed. The skin was closed using interrupted 3-0 Vicryl suture. Dermabond dressing were applied. The patient tolerated the procedure well.
[2020-01-10] MEDS ORDERED: SODIUM CHLORIDE 0.9% 1,000 ML IV ONE (16:59)
[2020-01-10] MEDS ORDERED: HYDROmorphone 0.5 MG/0.5 ML SYRINGE IVP ONE (18:20)
[2020-01-10] MEDS: PIPERACILLIN-TAZOBACTAM 3.375 GM in SODIUM CHLORIDE 0.9% 100 ML IVPB SCH ×2 (19:19→23:10)
[2020-01-10] MEDS: NALOXONE SUBLINGUAL SCH (19:50)
[2020-01-10] MEDS: BUPRENORPHINE SUBLINGUAL SCH (19:50)
[2020-01-10] MEDS: HYDROmorphone 1 MG/ML 1 ML SYRINGE IVP PRN (20:50)
[2020-01-10] MEDS ORDERED: NON FORMULARY DRUG (Buprenorphine Hcl/Naloxone Hcl [Suboxone 8 Mg-2 Mg Sl Film] 1 FILM) SUBLINGUAL SCH (21:00)
[2020-01-10] MEDS ORDERED: traZODone HCL 100 MG TAB PO SCH (21:00)
[2020-01-11] MEDS: SODIUM CHLORIDE 0.9% 1,000 ML IV SCH (04:50)
[2020-01-11] MEDS: HYDROmorphone 1 MG/ML 1 ML SYRINGE IVP PRN (04:50)
[2020-01-11] MEDS: PIPERACILLIN-TAZOBACTAM 3.375 GM in SODIUM CHLORIDE 0.9% 100 ML IVPB SCH (08:06)
[2020-01-11 08:40] VITALS: BP 132/69; PULSE 110; RESP 16; TEMP 99.1
[2020-01-11] MEDS ORDERED: ATORVASTATIN 20 MG TAB PO SCH (09:00)
[2020-01-11] MEDS: BUPRENORPHINE SUBLINGUAL SCH (09:16)
[2020-01-11] MEDS: NALOXONE SUBLINGUAL SCH (09:16)
[2020-01-11] MEDS: clonazePAM 1 MG TAB PO PRN (09:20)
--- NOTE | 2020-01-11 12:06 | XR ---
EXAMINATION TYPE: XR chest 1V DATE OF EXAM: 01/11/2020 COMPARISON: 01/09/2020 HISTORY: Shortness of breath and fever TECHNIQUE: Single frontal view of the chest is obtained. FINDINGS: Linear platelike atelectasis is seen at the lung bases. There are somewhat low lung volume s in comparison the prior partially obscuring the cardiomediastinal silhouette. No sizable pleural ef fusion or pneumothorax. IMPRESSION: Bibasilar linear platelike atelectasis.
--- NOTE | 2020-01-11 12:24 | P.DS ---
Providers Date of admission: 01/11/20 11:18 Expected date of discharge: 01/11/20 Attending physician: Lakhwinder Cherry Consults: 01/10/20 11:28 Consult Physician Routine Consulting Provider: Gorge Lizarraga Consult Reason/Comments: Medical management Do you want consulting provider notified?: Yes Primary care physician: Migel Hess DO Hospital Course: This a 64-year-old male who underwent laparoscopic ostectomy on 01/10/2020. Patient did well postoperative. Patient was noted to be slightly tachycardic on postoperative day 1. Patient is adamant about being discharged home. His pulse was rechecked on rounds and he was found to have a pulse of 90. On exam is lesser stable. His abdomen is soft. Incision sites clean and intact. Patiently discharged home today. He'll follow-up in the office next week. He is instructed the common to the emergency room and using has any significant abdominal complaints. Procedures: Laparoscopic cholecystectomy Patient Condition at Discharge: Good Plan - Discharge Summary Discharge Rx Participant: Yes New Discharge Prescriptions: New Docusate [Colace] 100 mg PO BID #20 capsule HYDROcodone/APAP 5-325MG [[place] 5-325] 1 tab PO Q6HR PRN #10 tab PRN Reason: Pain No Action Ramipril [Altace] 2.5 mg PO DAILY clonazePAM [KlonoPIN] 1 mg PO Q8H PRN PRN Reason: Anxiety Buprenorphine HCl/Naloxone HCl [Suboxone 8 mg-2 mg Sl Film] 1 film SL BID traZODone HCL [Desyrel] 400 mg PO HS Simvastatin 40 mg PO DAILY Cyclobenzaprine [Flexeril] 10 mg PO DAILY PRN PRN Reason: muscle spasms Testosterone Cypionate [Depo-Testosterone] 300 mg IM [id number] Discharge Medication List Buprenorphine HCl/Naloxone HCl [Suboxone 8 mg-2 mg Sl Film] 1 film SL BID 05/30/17 [History] Ramipril [Altace] 2.5 mg PO DAILY 05/30/17 [History] clonazePAM [KlonoPIN] 1 mg PO Q8H PRN 05/30/17 [History] traZODone HCL [Desyrel] 400 mg PO HS 05/30/17 [History] Cyclobenzaprine [Flexeril] 10 mg PO DAILY PRN 01/09/20 [History] Simvastatin 40 mg PO DAILY 01/09/20 [History] Testosterone Cypionate [Depo-Testosterone] 300 mg IM [id number] 01/09/20 [History] Docusate [Colace] 100 mg PO BID #20 capsule 01/11/20 [Rx] HYDROcodone/APAP 5-325MG [[place] 5-325] 1 tab PO Q6HR PRN #10 tab 01/11/20 [Rx] Follow up Appointment(s)/Referral(s): Migel Hess DO [Primary Care Provider] - 1-2 days Lakhwinder Cherry MD [STAFF PHYSICIAN] - 1 Week Activity/Diet/Wound Care/Special Instructions: home medications stored in pharmacy, give back to patient upon discharge Discharge Disposition: HOME SELF-CARE
--- NOTE | 2020-01-11 12:31 | P.PN ---
Subjective Patient is doing well clinically in overnight events did not pass gas yet patient is complaining of for pain in the shoulder area this is probably because of gas insufflation from laparoscopy. This is expected to get better patient did not pass gas. Patient didn't move her bowel yet patient is being discharged today. Which is appropriate from medical perspective Constitutional: Denied any fatigue denied any fever. Cardio vascular: denied any chest pain, palpitations Gastrointestinal denied any nausea vomiting Pulmonary: Denied any shortness of breath cough Neurologic denied any new focal deficits All inpatient medications were reviewed and appropriate changes in these medications as dictated in the interval history and assessment and plan. Objective - Vital Signs Vital signs: Vital Signs Temp 99.1 F 01/11/20 07:50 Pulse 110 H 01/11/20 08:00 Resp 16 01/11/20 08:00 BP 132/69 01/11/20 07:50 Pulse Ox 90 L 01/11/20 07:50 Intake & Output 01/10/20 01/11/20 01/11/20 18:59 06:59 18:59 Intake Total 2250 Output Total 5 Balance 2245 Weight 95.2 kg Intake: IV 2250 Output: Estimated Blood Loss 5 Other: # Voids 1 1 - Exam PHYSICAL EXAMINATION: GENERAL: The patient is alert and oriented x3, not in any acute distress. Obese HEENT: Pupils are round and equally reacting to light. EOMI. No scleral icterus. No conjunctival pallor. Normocephalic, atraumatic. No pharyngeal erythema. No thyromegaly. CARDIOVASCULAR: S1 and S2 present. No murmurs, rubs, or gallops. PULMONARY: Chest is clear to auscultation, no wheezing or crackles. ABDOMEN: Surgical site site areas appear to be clean patient has an abdominal binder in place MUSCULOSKELETAL: No joint swelling or deformity. EXTREMITIES: No cyanosis, clubbing, or pedal edema. NEUROLOGICAL: Gross neurological examination did not reveal any focal deficits. SKIN: No rashes. - Labs CBC & Chem 7: 01/10/20 06:17 01/10/20 06:17 Labs: Microbiology - Last 24 Hours (Table) 01/09/20 18:45 Blood Culture Gram Stain - Preliminary Blood Blood Culture - Preliminary Proteus Species Assessment and Plan Plan: -Sepsis probably secondary to acute cholecystitis patient is status post chol ecystectomy feeling much better -Elevated lipase can be related to mild pancreatitis from a passed gallstone or can be nonspecific without any pancreatitis. -Hypovolemic hyponatremia improved with IV fluids --Chronic low back pain for which patient was walks on which can be continued -Hypertension she can be resumed on he rACI -Hyperlipidemia -Thickening of urinary bladder but no evidence of urinary tract infection
--- NOTE | 2020-01-11 13:09 | CDI ---
Documentation Clarification Form Date: 01/11/2020 12:53:24 PM From: Leatha Haq RN CCDS Admit Date: 01/11/2020 11:18:00 AM Patient Name: Gentry Palma Visit Number: [id number] Discharge Date: ATTENTION: The Clinical Documentation Specialists (CDI) and [facility] Coding Staff appreciate your assistance in clarifying documentation. Please respond to the clarification below the line at the bottom and electronically sign. The CDI & [facility] Coding staff will review the response and follow-up if needed. Please note: Queries are made part of the Legal Health Record. If you have any questions, please contact the author of this message via ITS. Dr. Lakhwinder Cherry Sepsis probably secondary to acute cholecystitis is documented in Internal Medicine consult 01/09 History/Risk Factors: 64-year-old male presents to the ED for fever and generalized weakness. Clinical Indicators: 01/08 Labs: Wbc 11.5, Neutrophils 10.2, Lymphocytes 0.6, Na 134, Lipase 1684 01/08 Blood cultures: Proteus Species 01/08 Vital signs on admission: T 100.1F, P 62, B/P 133/67, RR 20, 96% ra Treatment: Antibiotics: 01/08 Zosyn IV x1, 01/09 Zosyn IV Q 8hr, IV Bolus: 01/08 0.9 Ns 1.5L Bolus followed by 100cchr Other: / Tylenol po x1 In your professional opinion, please clarify if these findings signify one of the following conditions, whether the condition is POA, and cause, if known: Sepsis POA Sepsis ruled out Other, please specify Unable to determine SIRS Criteria (2 or more of the following may indicate SIRS): -Temperature < 96.8F (36C) or > 101.0F (38.3C) -Heart Rate > 90 bpm -Respiratory Rate > 20 breaths/min or PaCO2 < 32 mmHg -White Blood Cell Count > 12,000 or < 4,000 cells/mm3 or > 10% bands -Lactate >2.0 mmol/L (>4.0 is equivalent to septic shock) (Last Revision: December 2017) Sepsis present on admission MTDD
== END 2020-01-11 14:29 | disposition home or self-care (01) | DRG 854 ==
LOC: EC 18:22 → 4SSUR 22:47 → OBSVTOIN 01-11 11:18
PROVIDERS: ADMIT Surgery; ATTEND Surgery
PROC: 0FT44ZZ Resection of Gallbladder, Percutaneous Endoscopic Approach (ICD-10-PCS; principal; 2020-01-10 16:15)
DX: A41.9 Sepsis, unspecified organism (principal); K80.00 Calculus of gallbladder with acute cholecystitis without obstruction; K82.1 Hydrops of gallbladder; E87.1 Hypo-osmolality and hyponatremia; Z20.828 Contact with and (suspected) exposure to other viral communicable diseases; R74.8 Abnormal levels of other serum enzymes; R91.1 Solitary pulmonary nodule; G89.29 Other chronic pain; M54.5 Low back pain; E78.5 Hyperlipidemia, unspecified; M25.511 Pain in right shoulder; E66.9 Obesity, unspecified; Z68.26 Body mass index [BMI] 26.0-26.9, adult; Z79.899 Other long term (current) drug therapy; Z87.891 Personal history of nicotine dependence; Z91.81 History of falling
CPT/HCPCS: 36415; 71045; 74177; 76705; 80048; 80053; 81003; 83605; 83690; 85025; 85610; 85730; 87040; 87077; 87186; 87502; 87635; 88304; 93005; 96365; 96366; 99285

== ENCOUNTER → 2022-11-26 | Outpatient (CLI) | payer MEDICARE ==
--- NOTE | 2022-11-26 13:22 | US ---
EXAMINATION TYPE: US abdomen complete DATE OF EXAM: 11/26/2022 COMPARISON: NONE CLINICAL HISTORY: K52.9 NONINFECTIVE GASTEROENTERITIS AND COLITIS. Chronic diarrhea, cholecystectomy TECHNIQUE: Multiple sonographic images of the abdomen are obtained. FINDINGS: EXAM MEASUREMENTS: Liver Length: 17.9 cm Gallbladder Wall: Surgically absent CBD: 0.6 cm Spleen: 15.1 cm Right Kidney: 12.1 x 4.4 x 5.3 cm Left Kidney: 13.2 x 3.7x 5.4 cm TRANSFER ENGINEER NOTES: bowel gas limits study Pancreas: not seen due to bowel gas Liver: intercostal imaging due to bowel gas Gallbladder: Surgically absent Evidence for sonographic Deng's sign: no CBD: wnl Spleen: enlarged Right Kidney: wnl Left Kidney: wnl Upper IVC: wnl Abd Aorta: bowel gas limits proximal view The liver is homogenous. The intrahepatic portion of the IVC and proximal abdominal aorta are within normal limits. Common bile duct is unremarkable. The visualized portions of the pancreas are homo genous. Kidneys are symmetric and free of hydronephrosis. No renal lesions are seen. IMPRESSION: 1. There is evidence of splenomegaly.
== END | disposition home or self-care (01) ==
LOC: RADUSWWP 12:31
PROVIDERS: ATTEND Internal Medicine Gastroenterology
DX: K52.9 Noninfective gastroenteritis and colitis, unspecified (principal); R16.1 Splenomegaly, not elsewhere classified
CPT/HCPCS: 76700

== ENCOUNTER 2022-12-15 10:35 | Day surgery (SDC) | payer MEDICARE ==
[2022-12-10 16:17] VITALS: BMI 24.3
[2022-12-15 11:20] VITALS: TEMP 97.4
[2022-12-15] MEDS ORDERED: fentaNYL (PF) 50 MCG/1 ML VIAL IVP ONE (11:28)
[2022-12-15] MEDS ORDERED: PROPOFOL 10 MG/ML 20 ML VIAL IV ONE (11:41)
--- NOTE | 2022-12-15 11:56 | P.PCN ---
Date of Procedure: 12/15/22 Procedure(s) Performed: BRIEF HISTORY: Patient is a []-year-old pleasant [] scheduled for an elective colonoscopy as a part of evaluation of chronic diarrhea for the last 3 months duration. His been having bowel movements anywhere from 10-12 a day which are loose to watery in consistency but for the last few weeks they have gradually improving. PROCEDURE PERFORMED: Colonoscopy with random biopsies. PREOPERATIVE DIAGNOSIS: Chronic diarrhea of 3 months duration. IV sedation per Anesthesia. PROCEDURE: After informed consent was obtained, the patient, was brought into the endoscopy unit. IV sedation was administered by Anesthesia under continuous monitoring. Digital rectal examination was normal. Initially the Olympus CF-160 flexible video colonoscope was then inserted in the rectum, gradually advanced into the cecum without any difficulty. Careful examination was performed as the scope was gradually being withdrawn. Ileocecal valve and the appendiceal orifice were visualized and appeared normal. Prep was excellent. Mucosa of the cecum, ascending colon, transverse colon, descending colon, sigmoid colon, and rectum appeared normal. Random biopsies were done from ascending and descending colon to rule out microscopic/collagenous colitis Retroflexion was performed in the rectum and no lesions were seen. The patient tolerated the procedure well. IMPRESSION: Normal-appearing colon from rectum to cecum with no evidence of colitis or colorectal neoplasia . RECOMMENDATIONS: Findings of this examination were discussed with the patient as well as his family. He was advised to follow with the biopsy results. He'll be seen in office in 2 weeks..
[2022-12-15 12:03] VITALS: BP 145/80; PULSE 79; RESP 18
== END 2022-12-15 13:32 | disposition home or self-care (01) ==
LOC: ORWHC2ENDO 10:35
PROVIDERS: ATTEND Internal Medicine Gastroenterology
DX: K52.832 Lymphocytic colitis (principal); K52.9 Noninfective gastroenteritis and colitis, unspecified; F41.9 Anxiety disorder, unspecified; Z79.899 Other long term (current) drug therapy
CPT/HCPCS: 45380; J2704; J3010; 88305

== ENCOUNTER → 2024-02-07 | Outpatient (CLI) | payer MEDICARE ==
--- NOTE | 2024-02-17 23:47 | XR ---
EXAMINATION TYPE: XR Hip 2 views LT and AP Pelvis DATE OF EXAM: 02/07/2024 Comparison: None Clinical History: 69-year-old male M25.552 PAIN IN LEFT HIP Findings: Bilateral coxa valgus. Superior femoral head neck junction osseous excrescences. Hip joint space is m aintained on both sides. Pelvic phleboliths. Vascular calcifications noted. SI joints appear symmetri c and intact as does the pubic symphysis. 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 Hip joint space is relatively main tained. No acute osseous abnormality seen.
== END | disposition home or self-care (01) ==
LOC: RADXRMAIN 16:49
PROVIDERS: ATTEND Neurological Surgery
DX: M24.852 Other specific joint derangements of left hip, not elsewhere classified (principal); Q65.81 Congenital coxa valga
CPT/HCPCS: 73502

== ENCOUNTER → 2024-02-07 | Outpatient (CLI) | payer MEDICARE ==
--- NOTE | 2024-02-07 21:13 | MR ---
EXAMINATION TYPE: MR lumbar spine wo con DATE OF EXAM: 02/07/2024 COMPARISON: None HISTORY: Low back pain into left side x1 year TECHNIQUE: Multiplanar, multisequence images of the lumbar spine were acquired without IV contrast. Findings: The lumbar vertebral segments are normal in height and alignment no fracture or subluxation. Disc spaces are well preserved in height. There is mild circumferential disc bulge and spondylosis at L3-4, L4-5 and L5-S1 level. There is no lumbar disc herniation. Secondary to marked facet hypertrophy and thickening of ligamentum flavum as well as circumferential disc bulge, there is severe spinal stenosis at the L3-4 level. Similar changes result in mild spinal stenosis at the L4-5 level. There is mild neural foraminal stenosis at the L3-4 level bilaterally and at the L5-4-5 level on the right. The visualized sacrum and SI joints are normal. IMPRESSION: 1. The lumbar spine fracture or malalignment. 2. Mild degenerative disc disease at the L3-4, L4-5 and L5-S1 level. 3. moderate to marked facet arthropathy in the lower lumbar spine. 4. Severe spinal stenosis at the L3-4 level and mild spinal stenosis at the L4-5 level. 5. Mild neural foraminal stenosis at the L3-4 and L4-5 levels as described above. 6. The lumbar disc herniation.
== END | disposition home or self-care (01) ==
LOC: RADMRIMAIN 15:47
PROVIDERS: ATTEND Neurological Surgery
DX: M51.37 Other intervertebral disc degeneration, lumbosacral region (principal); M47.816 Spondylosis without myelopathy or radiculopathy, lumbar region; M99.73 Connective tissue and disc stenosis of intervertebral foramina of lumbar region; M51.26 Other intervertebral disc displacement, lumbar region
CPT/HCPCS: 72148